=== PATIENT | female | born 1940 | race Two or more races ===

== ENCOUNTER 2019-01-12 13:01 | Emergency (ER) | payer MEDICARE, OTHER ==
[2019-01-12 13:09] VITALS: TEMP 97.8
--- NOTE | 2019-01-12 14:07 | ED ---
Weakness HPI - General Chief complaint: Weakness Stated complaint: weakness, unexplained bruising Time Seen by Provider: 01/12/19 13:33 Source: patient, RN notes reviewed, old records reviewed Mode of arrival: ambulatory Limitations: no limitations - History of Present Illness Initial comments: This is a 78-year-old female the ER for evaluation. Patient has multiple nonspecific complaints Bren[place] of things from nausea vomiting diarrhea occasional nonspecific abdominal pain decreased appetite and significant bruising of her left upper extremity. Patient is on Alquist. She also took Motrin for a few days for pain. Denies specific traumas. No prior history of similar bleeding issue. No chest pain patient denies any fevers MD Complaint: generalized weakness, lack of energy -: days(s) Location: LUE (Left upper extremity does have significant ecchymosis) Consistency: constant Improves with: none Worsens with: none Associated Symptoms: loss of appetite, nausea/vomiting - Related Data Home Medications Medication Instructions Recorded Confirmed Calcium Carbonate/Vitamin D3 1 tab PO DAILY 01/12/19 01/12/19 [Calcium 600-Vit D3 400 Tablet] Hydrocodone/Acetaminophen [Mcintosh 1 tab PO Q6HR PRN 01/12/19 01/12/19 7.5-325] Latanoprost/Pf [Latanoprost 0.005% 1 drop BOTH EYES HS 01/12/19 01/12/19 Eye Drop] Multivitamins, Thera [Multivitamin 1 tab PO DAILY 01/12/19 01/12/19 (formulary)] Oxybutynin Chloride [Ditropan] 5 mg PO BID 01/12/19 01/12/19 Ranitidine HCl [Zantac] 150 mg PO BID 01/12/19 01/12/19 Sertraline HCl [Zoloft] 200 mg PO DAILY 01/12/19 01/12/19 traZODone HCL [Desyrel] 50 mg PO HS 01/12/19 01/12/19 Allergies Allergy/AdvReac Type Severity Reaction Status Date / Time gabapentin Allergy Rash/Hives Verified 01/12/19 13:41 meperidine [From Demerol] Allergy Rash/Hives Verified 01/12/19 13:41 Penicillins Allergy Rash/Hives Verified 01/12/19 13:41 Sulfa (Sulfonamide Allergy Rash/Hives Verified 01/12/19 13:41 Antibiotics) Review of Systems ROS Statement: Those systems with pertinent positive or pertinent negative responses have been documented in the HPI. ROS Other: All systems not noted in ROS Statement are negative. Past Medical History Past Medical History: Chest Pain / Angina, Pulmonary Embolus (PE) Additional Past Medical History / Comment(s): Blood clots History of Any Multi-Drug Resistant Organisms: None Reported Past Surgical History: Hysterectomy, Orthopedic Surgery Past Psychological History: No Psychological Hx Reported Smoking Status: Never smoker Past Alcohol Use History: Occasional Past Drug Use History: None Reported General Exam - General Exam Comments Initial Comments: Patient does have significant ecchymosis and areas of swelling of her left upper extremity, no hematoma noted, good pulses Limitations: no limitations General appearance: alert, in no apparent distress Head exam: Present: atraumatic, normocephalic, normal inspection Eye exam: Present: normal appearance, PERRL, EOMI. Absent: scleral icterus, conjunctival injection, periorbital swelling ENT exam: Present: normal exam, mucous membranes moist Neck exam: Present: normal inspection. Absent: tenderness, meningismus, lymphadenopathy Respiratory exam: Present: normal lung sounds bilaterally. Absent: respiratory distress, wheezes, rales, rhonchi, stridor Cardiovascular Exam: Present: regular rate, normal rhythm, normal heart sounds. Absent: systolic murmur, diastolic murmur, rubs, gallop, clicks GI/Abdominal exam: Present: soft, normal bowel sounds. Absent: distended, tenderness, guarding, rebound, rigid Extremities exam: Present: normal inspection, full ROM, normal capillary refill. Absent: tenderness, pedal edema, joint swelling, calf tenderness Back exam: Present: normal inspection Neurological exam: Present: alert, oriented X3, CN II-XII intact Psychiatric exam: Present: normal affect, normal mood Skin exam: Present: warm, dry, intact, normal color. Absent: rash Course Vital Signs 01/12/19 01/12/19 13:05 17:55 Temperature 97.8 F Pulse Rate 66 60 Respiratory 20 18 Rate Blood Pressure 133/70 127/90 O2 Sat by Pulse 96 100 Oximetry EKG Findings - EKG Comments: EKG Findings:: EKG shows sinus rhythm rate of 63, DE 20, QRS 86, QTc 388 Medical Decision Making - Medical Decision Making 78-year-old female the ER for evaluation lab values including platelets are negative here in the ER, he will is normal, ultrasound left upper extremity is negative for acute disease or DVT. Patient can be discharged home - Lab Data Result diagrams: 01/12/19 15:20 01/12/19 15:20 Lab Results 01/12/19 01/12/19 01/12/19 Range/Units 15:20 15:20 15:20 WBC 3.9 (3.8-10.6) k/uL RBC 3.81 (3.80-5.40) m/uL Hgb 12.4 (11.4-16.0) gm/dL Hct 36.0 (34.0-46.0) % MCV 94.5 (80.0-100.0) fL MCH 32.7 (25.0-35.0) pg MCHC 34.6 (31.0-37.0) g/dL RDW 12.5 (11.5-15.5) % Plt Count 163 (150-450) k/uL Neutrophils % 58 % Lymphocytes % 20 % Monocytes % 11 % Eosinophils % 7 % Basophils % 0 % Neutrophils # 2.3 (1.3-7.7) k/uL Lymphocytes # 0.8 L (1.0-4.8) k/uL Monocytes # 0.4 (0-1.0) k/uL Eosinophils # 0.3 (0-0.7) k/uL Basophils # 0.0 (0-0.2) k/uL PT 9.8 (9.0-12.0) sec INR 0.9 (<1.2) APTT 24.5 (22.0-30.0) sec Sodium 133 L (137-145) mmol/L Potassium 4.5 (3.5-5.1) mmol/L Chloride 98 (98-107) mmol/L Carbon Dioxide 26 (22-30) mmol/L Anion Gap 9 mmol/L BUN 15 (7-17) mg/dL Creatinine 0.81 (0.52-1.04) mg/dL Est GFR (CKD-EPI)AfAm 80 (>60 ml/min/1.73 sqM) Est GFR (CKD-EPI)NonAf 69 (>60 ml/min/1.73 sqM) Glucose 68 L (74-99) mg/dL Calcium 9.6 (8.4-10.2) mg/dL Magnesium 1.7 (1.6-2.3) mg/dL Total Bilirubin 0.5 (0.2-1.3) mg/dL AST 27 (14-36) U/L ALT 17 (9-52) U/L Alkaline Phosphatase 93 (38-126) U/L Troponin I (0.000-0.034) ng/mL Total Protein 6.8 (6.3-8.2) g/dL Albumin 4.3 (3.5-5.0) g/dL Blood Type Blood Type Recheck Antibody Screen Spec Expiration Date 01/12/19 01/12/19 Range/Units 15:20 15:20 WBC (3.8-10.6) k/uL RBC (3.80-5.40) m/uL Hgb (11.4-16.0) gm/dL Hct (34.0-46.0) % MCV (80.0-100.0) fL MCH (25.0-35.0) pg MCHC (31.0-37.0) g/dL RDW (11.5-15.5) % Plt Count (150-450) k/uL Neutrophils % % Lymphocytes % % Monocytes % % Eosinophils % % Basophils % % Neutrophils # (1.3-7.7) k/uL Lymphocytes # (1.0-4.8) k/uL Monocytes # (0-1.0) k/uL Eosinophils # (0-0.7) k/uL Basophils # (0-0.2) k/uL PT (9.0-12.0) sec INR (<1.2) APTT (22.0-30.0) sec Sodium (137-145) mmol/L Potassium (3.5-5.1) mmol/L Chloride (98-107) mmol/L Carbon Dioxide (22-30) mmol/L Anion Gap mmol/L BUN (7-17) mg/dL Creatinine (0.52-1.04) mg/dL Est GFR (CKD-EPI)AfAm (>60 ml/min/1.73 sqM) Est GFR (CKD-EPI)NonAf (>60 ml/min/1.73 sqM) Glucose (74-99) mg/dL Calcium (8.4-10.2) mg/dL Magnesium (1.6-2.3) mg/dL Total Bilirubin (0.2-1.3) mg/dL AST (14-36) U/L ALT (9-52) U/L Alkaline Phosphatase (38-126) U/L Troponin I <0.012 (0.000-0.034) ng/mL Total Protein (6.3-8.2) g/dL Albumin (3.5-5.0) g/dL Blood Type O Negative Blood Type Recheck CABO Indicated Antibody Screen NEGATIVE Spec Expiration Date 01/15/2019 - 2320 - Radiology Data Radiology results: report reviewed (Ultrasound left lower extremity is negative for DVT), image reviewed Disposition Clinical Impression: Weakness, Ecchymosis Disposition: HOME SELF-CARE Condition: Good Instructions (If sedation given, give patient instructions): Ecchymosis (ED) Is patient prescribed a controlled substance at d/c from ED?: No Referrals: Oliverio Eng MD [Primary Care Provider] - 1-2 days
[2019-01-12] MEDS ORDERED: SODIUM CHLORIDE 0.9% 1,000 ML IV STA (14:49)
[2019-01-12 15:42] LABS: Basophils % (A) 0 %; Eosinophils # (A) 0.3 k/uL (0-0.7); Eosinophils % (A) 7 %; HGB 12.4 gm/dL (11.4-16.0); Lymphocytes # (A) 0.8 k/uL (1.0-4.8); Lymphocytes % (A) 20 %; MCH 32.7 pg (25.0-35.0); MCHC 34.6 g/dL (31.0-37.0); MCV 94.5 fL (80.0-100.0); Mean Platelet Volume 7.4; Monocytes # (A) 0.4 k/uL (0-1.0); Monocytes % (A) 11 %; Neutrophils # (A) 2.3 k/uL (1.3-7.7); Neutrophils % (A) 58 %; Platelet Count 163 k/uL (150-450); RBC 3.81 m/uL (3.80-5.40); RDW 12.5 % (11.5-15.5); WBC 3.9 k/uL (3.8-10.6)
[2019-01-12 15:51] LABS: INR 0.9 (<1.2); Partial Thromboplastin Time 24.5 sec (22.0-30.0); Prothrombin Time 9.8 sec (9.0-12.0)
[2019-01-12 15:57] LABS: Albumin 4.3 g/dL (3.5-5.0); Calcium 9.6 mg/dL (8.4-10.2); Magnesium 1.7 mg/dL (1.6-2.3); Potassium 4.5 mmol/L (3.5-5.1); Total Bilirubin 0.5 mg/dL (0.2-1.3); Total Protein 6.8 g/dL (6.3-8.2)
--- NOTE | 2019-01-12 16:24 | US ---
EXAMINATION TYPE: US venous doppler duplex UE LT DATE OF EXAM: 01/12/2019 COMPARISON: NONE CLINICAL HISTORY: Pain. Pain left arm x 6 days. Bruising left arm. Hx PE. Pt on eliquis. SIDE PERFORMED: Left *limited due to patient's difficulty positioning arm. Left Arm: No evidence of DVT in the left upper extremity. IMPRESSION: 1. No diagnostic evidence of DVT as visualized.
[2019-01-12 17:56] VITALS: BP 127/90; PULSE 60; RESP 18
== END 2019-01-12 17:56 | disposition home or self-care (01) ==
LOC: EC 13:01
DX: R53.1 Weakness (principal); S40.022A Contusion of left upper arm, initial encounter; R11.2 Nausea with vomiting, unspecified; R19.7 Diarrhea, unspecified; R63.0 Anorexia; Z79.899 Other long term (current) drug therapy; Z88.8 Allergy status to other drugs, medicaments and biological substances; Z88.5 Allergy status to narcotic agent; Z88.0 Allergy status to penicillin; Z88.2 Allergy status to sulfonamides
CPT/HCPCS: 36415; 80053; 83735; 84484; 85025; 85610; 85730; 86850; 86900; 86901; 93005; 96360; 96361; 99285

== ENCOUNTER 2021-04-27 16:17 | Inpatient (IN) | payer MEDICARE ==
[2021-04-27 18:26] LABS: Basophils % (A) 0 %; Eosinophils # (A) 0.2 k/uL (0-0.7); Eosinophils % (A) 4 %; HCT 36.2 % (34.0-46.0); HGB 12.7 gm/dL (11.4-16.0); Lymphocytes # (A) 0.9 k/uL (1.0-4.8); Lymphocytes % (A) 24 %; MCH 34.5 pg (25.0-35.0); MCV 98.6 fL (80.0-100.0); Monocytes # (A) 0.2 k/uL (0-1.0); Monocytes % (A) 6 %; Neutrophils # (A) 2.3 k/uL (1.3-7.7); Neutrophils % (A) 64 %; Platelet Count 160 k/uL (150-450); RBC 3.67 m/uL (3.80-5.40); RDW 12.6 % (11.5-15.5); WBC 3.7 k/uL (3.8-10.6)
[2021-04-27 18:39] LABS: INR 0.9 (<1.2); Partial Thromboplastin Time 24.6 sec (22.0-30.0); Prothrombin Time 10.2 sec (9.0-12.0)
[2021-04-27 18:39] LABS: Albumin 4.2 g/dL (3.5-5.0); Calcium 9.1 mg/dL (8.4-10.2); Potassium 4.6 mmol/L (3.5-5.1); Total Bilirubin 0.2 mg/dL (0.2-1.3); Total Protein 6.5 g/dL (6.3-8.2)
[2021-04-27] MEDS ORDERED: diphenhydrAMINE 50 MG/ML 1 ML VIAL IVP STA (19:40)
[2021-04-27] MEDS ORDERED: METOCLOPRAMIDE 5 MG/ML 2 ML VIAL IVP STA (19:40)
[2021-04-27] MEDS ORDERED: SODIUM CHLORIDE 0.9% 500 ML 500 ML IV ONE (19:40)
--- NOTE | 2021-04-27 20:14 | ED ---
General Adult HPI - General Source: patient Mode of arrival: wheelchair Limitations: no limitations <Viviane Phillip - Last Filed: 04/27/21 22:16> <Denae Gilbert - Last Filed: 04/28/21 13:32> - General Chief complaint: Dizziness Stated complaint: Headache,Dizziness Time Seen by Provider: 04/27/21 19:05 - History of Present Illness Initial comments: 81 year-old female patient with past history of migraines and pulmonary embolism presents to the emergency department for evaluation of headache for the last 1.5 months. States that over the last couple of weeks she has been experiencing dizziness and not feeling well. States that the dizziness comes and goes but does not seem to be related to any position change or activity. Denies any blurred or double vision. Daughter states she walked to the mailbox yesterday and upon return her headache was much worse and she was quite dizzy. Patient states that she has been "queasy" with this. Denies any fever or chills. Denies numbness, tingling, or weakness to the extremities. Denies starting any new medications. Denies any fall or head injury. States she has been taking her prescribed sumatriptan, zofran, and OTC tylenol without relief. Patient denies any recent rash, fever, chills, cough, shortness of breath, chest pain, abdominal pain, diarrhea, constipation, back pain, hematuria, dysuria, urinary urgency, urinary frequency, or any other complaints. (Viviane Phillip) - Related Data Home Medications Medication Instructions Recorded Confirmed Oxybutynin Chloride [Ditropan] 5 mg PO BID 01/12/19 04/27/21 Sertraline HCl [Zoloft] 200 mg PO HS 01/12/19 04/27/21 traZODone HCL [Desyrel] 50 mg PO HS 01/12/19 04/27/21 Apixaban [Eliquis] 5 mg PO BID 04/27/21 04/27/21 Propranolol [Inderal] 40 mg PO BID 04/27/21 04/27/21 SUMAtriptan succinate [Imitrex] 50 mg PO DAILY PRN 04/27/21 04/27/21 Ondansetron [Zofran ODT] 4 mg PO Q8H PRN 04/28/21 04/28/21 Allergies Allergy/AdvReac Type Severity Reaction Status Date / Time gabapentin Allergy Rash/Hives Verified 04/27/21 21:52 meperidine [From Demerol] Allergy Rash/Hives Verified 04/27/21 21:52 Penicillins Allergy Rash/Hives Verified 04/27/21 21:52 Sulfa (Sulfonamide Allergy Rash/Hives Verified 04/27/21 21:52 Antibiotics) Review of Systems ROS Other: All systems not noted in ROS Statement are negative. <Viviane Phillip - Last Filed: 04/27/21 22:16> ROS Other: All systems not noted in ROS Statement are negative. <Denae Gilbert - Last Filed: 04/28/21 13:32> ROS Statement: Those systems with pertinent positive or pertinent negative responses have been documented in the HPI. Past Medical History Past Medical History: Chest Pain / Angina, Pulmonary Embolus (PE) Additional Past Medical History / Comment(s): Blood clots History of Any Multi-Drug Resistant Organisms: None Reported Past Surgical History: Hysterectomy, Orthopedic Surgery Past Psychological History: No Psychological Hx Reported Smoking Status: Former smoker Past Alcohol Use History: Occasional Past Drug Use History: None Reported <Viviane Phillip - Last Filed: 04/27/21 22:16> General Exam Limitations: no limitations General appearance: alert, in no apparent distress, other (This is a well- developed, well-nourished elderly female patient in no acute distress. Vital signs upon presentation are temperature 97.9F, pulse 60, respirations 16, blood pressure 152/69, pulse ox 99% on room air.) Eye exam: Present: normal appearance, PERRL, EOMI. Absent: scleral icterus, conjunctival injection, periorbital swelling ENT exam: Present: normal exam, normal oropharynx, mucous membranes moist Respiratory exam: Present: normal lung sounds bilaterally. Absent: respiratory distress, wheezes, rales, rhonchi, stridor Cardiovascular Exam: Present: regular rate, normal rhythm, normal heart sounds. Absent: systolic murmur, diastolic murmur, rubs, gallop, clicks GI/Abdominal exam: Present: soft, normal bowel sounds. Absent: distended, tenderness, guarding, rebound, rigid Neurological exam: Present: alert, oriented X3, CN II-XII intact Expanded Speech: Present: fluid speech Cranial nerves: EOM's Intact: Normal, Tongue Deviation: Normal, Nystagmus: Normal Motor strength exam: RUE: 5, LUE: 5, RLE: 5, LLE: 5 Psychiatric exam: Present: normal affect, normal mood Skin exam: Present: warm, dry, intact, normal color. Absent: rash <Viviane Phillip - Last Filed: 04/27/21 22:16> Course Vital Signs 04/27/21 04/27/21 04/27/21 17:47 18:45 22:33 Temperature 97.9 F Pulse Rate 60 56 L Respiratory 16 15 Rate Blood Pressure 152/69 139/81 157/73 O2 Sat by Pulse 99 100 Oximetry EKG Findings - EKG Comments: EKG Findings:: EKG obtained at 1802 shows sinus rhythm with a first-degree AV block. Ventricular rate is 61, AL interval 234, QRS duration 88, QT 402, QTc 404. No evidence of ST elevation or depression. <Viviane Phillip - Last Filed: 04/27/21 22:16> Medical Decision Making - Lab Data Result diagrams: 04/27/21 18:13 04/27/21 18:13 - Radiology Data Radiology results: report reviewed, image reviewed <Viviane Phillip - Last Filed: 04/27/21 22:16> - Lab Data Result diagrams: 04/27/21 18:13 04/28/21 07:17 <Denae Gilbert - Last Filed: 04/28/21 13:32> - Medical Decision Making 81-year-old female patient presented to the emergency department today for evaluation of headache and dizziness. Physical examination was unremarkable. She is neurologically intact with no focal deficits. Labs reviewed and did reveal white blood cell count at 3.7, sodium 129. Urinalysis is negative for infection. CT brain is negative. Given intractable nature of patient's symptoms admitted to the hospital for further evaluation by neurology. We will replace sodium with IV infusion. Case discussed with my attending Dr. Gilbert. (Viviane Phillip) I was available for consultation in the emergency department. The history and physical exam were done by the midlevel provider. I was consulted for this patients care. I reviewed the case with the midlevel provider and based on their presentation of the patient, I agree with the assessment, medical decision making and plan of care as documented. Chart was dictated using [employer] dictation software. Attempts were made to correct any dictation errors however some typographical errors may persist. Patient was seen during a national state of emergency due to the Covid-19 pandemic. (Denae Gilbert) - Lab Data Lab Results 04/27/21 04/27/21 04/27/21 Range/Units 18:13 18:13 18:13 WBC 3.7 L (3.8-10.6) k/uL RBC 3.67 L (3.80-5.40) m/uL Hgb 12.7 (11.4-16.0) gm/dL Hct 36.2 (34.0-46.0) % MCV 98.6 (80.0-100.0) fL MCH 34.5 (25.0-35.0) pg MCHC 35.0 (31.0-37.0) g/dL RDW 12.6 (11.5-15.5) % Plt Count 160 (150-450) k/uL MPV 7.0 Neutrophils % 64 % Lymphocytes % 24 % Monocytes % 6 % Eosinophils % 4 % Basophils % 0 % Neutrophils # 2.3 (1.3-7.7) k/uL Lymphocytes # 0.9 L (1.0-4.8) k/uL Monocytes # 0.2 (0-1.0) k/uL Eosinophils # 0.2 (0-0.7) k/uL Basophils # 0.0 (0-0.2) k/uL PT (9.0-12.0) sec INR (<1.2) APTT (22.0-30.0) sec Sodium 129 L (137-145) mmol/L Potassium 4.6 (3.5-5.1) mmol/L Chloride 93 L (98-107) mmol/L Carbon Dioxide 28 (22-30) mmol/L Anion Gap 8 mmol/L BUN 13 (7-17) mg/dL Creatinine 0.80 (0.52-1.04) mg/dL Est GFR (CKD-EPI)AfAm 79 (>60 ml/min/1.73 sqM) Est GFR (CKD-EPI)NonAf 69 (>60 ml/min/1.73 sqM) Glucose 110 H (74-99) mg/dL Calcium 9.1 (8.4-10.2) mg/dL Total Bilirubin 0.2 (0.2-1.3) mg/dL AST 34 (14-36) U/L ALT 17 (4-34) U/L Alkaline Phosphatase 96 (38-126) U/L Troponin I <0.012 (0.000-0.034) ng/mL Total Protein 6.5 (6.3-8.2) g/dL Albumin 4.2 (3.5-5.0) g/dL Urine Color Urine Appearance (Clear) Urine pH (5.0-8.0) Ur Specific [place] (1.001-1.035) Urine Protein (Negative) Urine Glucose (UA) (Negative) Urine Ketones (Negative) Urine Blood (Negative) Urine Nitrite (Negative) Urine Bilirubin (Negative) Urine Urobilinogen (<2.0) mg/dL Ur Leukocyte Esterase (Negative) 04/27/21 04/27/21 Range/Units 18:19 20:15 WBC (3.8-10.6) k/uL RBC (3.80-5.40) m/uL Hgb (11.4-16.0) gm/dL Hct (34.0-46.0) % MCV (80.0-100.0) fL MCH (25.0-35.0) pg MCHC (31.0-37.0) g/dL RDW (11.5-15.5) % Plt Count (150-450) k/uL MPV Neutrophils % % Lymphocytes % % Monocytes % % Eosinophils % % Basophils % % Neutrophils # (1.3-7.7) k/uL Lymphocytes # (1.0-4.8) k/uL Monocytes # (0-1.0) k/uL Eosinophils # (0-0.7) k/uL Basophils # (0-0.2) k/uL PT 10.2 (9.0-12.0) sec INR 0.9 (<1.2) APTT 24.6 (22.0-30.0) sec Sodium (137-145) mmol/L Potassium (3.5-5.1) mmol/L Chloride (98-107) mmol/L Carbon Dioxide (22-30) mmol/L Anion Gap mmol/L BUN (7-17) mg/dL Creatinine (0.52-1.04) mg/dL Est GFR (CKD-EPI)AfAm (>60 ml/min/1.73 sqM) Est GFR (CKD-EPI)NonAf (>60 ml/min/1.73 sqM) Glucose (74-99) mg/dL Calcium (8.4-10.2) mg/dL Total Bilirubin (0.2-1.3) mg/dL AST (14-36) U/L ALT (4-34) U/L Alkaline Phosphatase (38-126) U/L Troponin I (0.000-0.034) ng/mL Total Protein (6.3-8.2) g/dL Albumin (3.5-5.0) g/dL Urine Color Colorless Urine Appearance Clear (Clear) Urine pH 7.5 (5.0-8.0) Ur Specific [place] 1.004 (1.001-1.035) Urine Protein Negative (Negative) Urine Glucose (UA) Negative (Negative) Urine Ketones Negative (Negative) Urine Blood Negative (Negative) Urine Nitrite Negative (Negative) Urine Bilirubin Negative (Negative) Urine Urobilinogen <2.0 (<2.0) mg/dL Ur Leukocyte Esterase Negative (Negative) - Radiology Data CT brain without contrast was obtained. Report was reviewed in its entirety. Impression by Dr. Tsang shows stable atrophy and chronic small vessel ischemia. No acute intracranial abnormality. (Viviane Phillip) Disposition Decision to Admit Reason: Admit from EC Decision Date: 04/27/21 Decision Time: 21:40 <Viviane Phillip - Last Filed: 04/27/21 22:16> <Denae Gilbert - Last Filed: 04/28/21 13:32> Clinical Impression: Dizziness, Intractable headache Disposition: ADMITTED IP TO THIS [facility] Condition: Serious
--- NOTE | 2021-04-27 20:17 | CT ---
EXAMINATION TYPE: CT brain wo con DATE OF EXAM: 04/27/2021 COMPARISON: HISTORY: Headache x 1.[address] DLP: 1141.4 mGycm Automated exposure control for dose reduction was used. There is cerebral cortical atrophy. There is no mass effect nor midline shift. There is no sign of in tracranial hemorrhage. There is some mild white matter hypodensity in the posterior parietal lobes bi laterally. Calvarium is intact skull base is intact. IMPRESSION: Cerebral atrophy and chronic small vessel ischemia. No acute intracranial abnormality.
[2021-04-27 20:55] LABS: Appearance,Urine Clear (Clear); Bilirubin,Urine Negative (Negative); Blood,Urine Negative (Negative); Color,Urine Colorless; Glucose,Urine (UA) Negative (Negative); Ketones,Urine Negative (Negative); Leukocyte Esterase,Urine Negative (Negative); Nitrite,Urine Negative (Negative); PH, Urine 7.5 (5.0-8.0); Protein,Urine Negative (Negative); Specific Gravity,Urine 1.004 (1.001-1.035); Urobilinogen,Urine <2.0 mg/dL (<2.0)
[2021-04-27] MEDS ORDERED: ONDANSETRON 4 MG/2 ML VIAL IVP PRN (21:37)
[2021-04-27] MEDS ORDERED: NALOXONE 0.4 MG/ML 1 ML VIAL IV PRN (21:37)
[2021-04-27] MEDS ORDERED: DEXAMETHASONE SOD PHOSPHATE 10 MG/ML 1 ML VIAL IV STA (21:39)
[2021-04-27] MEDS ORDERED: KETOROLAC 15 MG/ML 1 ML VIAL IVP STA (21:39)
[2021-04-27] MEDS ORDERED: SODIUM CHLORIDE 0.9% 1,000 ML IV SCH (21:45)
[2021-04-27 23:15] VITALS: RESP 20
[2021-04-28] MEDS ORDERED: traZODone HCL 50 MG TAB PO SCH (01:32)
[2021-04-28] MEDS ORDERED: SERTRALINE 100 MG TAB PO SCH (01:32)
[2021-04-28] MEDS ORDERED: cloNIDine HCL 0.2 MG TAB PO PRN (01:52)
[2021-04-28] MEDS: APIXABAN 5 MG TAB PO SCH ×2 (01:54→11:10)
[2021-04-28] MEDS: PROPRANOLOL 40 MG TAB PO SCH ×2 (01:57→11:10)
[2021-04-28] MEDS: OXYBUTYNIN CHLORIDE 5 MG TAB PO SCH ×2 (01:57→11:10)
--- NOTE | 2021-04-28 02:12 | P.HPIM ---
History of Present Illness H&P Date: 04/27/21 Chief Complaint: headache 81 year old female with severe diffuse arthritis patient comes in due to worsening headaches, over past couple days. she described history of migraine headaches since age of 11. however, this new attack that strted about 1.5 months ago, pain has been intractable not responding to tylenol and mainly frontal pressure like associated with episodes of epistaxis and elevated blood pressure, pain is 8/10 in severity. and over past two day s has been associated with dizziness and feeling unsteady on her legs. denies any falling or head injury , denies any focal neuro deficits , denies any changes in hearing or vision. denies tinnitus , she does describe some nausea, but no vomiting,. patient lives alone. she has scheduled an appointment with neurology , which is not until mid april. she denies any URI symptoms, runny nose, fever, or chills, no recent travel or hospitalization. she is vaccinated for COIVD 19 in the ED, CT of the brain showed no acute pathology, but showed chronic small vessel ischemia. blood work showed hyponatremia, UA negative. WBC low 3.7, patient admitted for intractable headache for neuro eval Review of Systems Pertinent positives as noted in HPI. All other systems were reviewed and are negative Past Medical History Past Medical History: Chest Pain / Angina, Pulmonary Embolus (PE) Additional Past Medical History / Comment(s): Blood clots, migraine headache History of Any Multi-Drug Resistant Organisms: None Reported Past Surgical History: Hysterectomy, Orthopedic Surgery Additional Past Surgical History / Comment(s): left knee replacement, right hip, right shoulder replacement Past Anesthesia/Blood Transfusion Reactions: No Reported Reaction Past Psychological History: No Psychological Hx Reported Smoking Status: Former smoker Past Alcohol Use History: Occasional Past Drug Use History: None Reported - Past Family History family Family Medical History: No Reported History Medications and Allergies Home Medications Medication Instructions Recorded Confirmed Type Oxybutynin Chloride [Ditropan] 5 mg PO BID 01/12/19 04/27/21 History Sertraline HCl [Zoloft] 200 mg PO HS 01/12/19 04/27/21 History traZODone HCL [Desyrel] 50 mg PO HS 01/12/19 04/27/21 History Apixaban [Eliquis] 5 mg PO BID 04/27/21 04/27/21 History Ondansetron HCl [Zofran] 4 mg PO Q8H PRN 04/27/21 04/27/21 History Propranolol [Inderal] 40 mg PO BID 04/27/21 04/27/21 History SUMAtriptan succinate [Imitrex] 50 mg PO DAILY PRN 04/27/21 04/27/21 History Allergies Allergy/AdvReac Type Severity Reaction Status Date / Time gabapentin Allergy Rash/Hives Verified 04/27/21 21:52 meperidine [From Demerol] Allergy Rash/Hives Verified 04/27/21 21:52 Penicillins Allergy Rash/Hives Verified 04/27/21 21:52 Sulfa (Sulfonamide Allergy Rash/Hives Verified 04/27/21 21:52 Antibiotics) Physical Exam Vitals: Vital Signs Temp Pulse Pulse Resp BP BP Pulse Ox 04/27/21 23:00 97.8 F 60 20 175/79 98 04/27/21 22:33 56 L 15 157/73 100 04/27/21 18:45 139/81 04/27/21 17:47 97.9 F 60 16 152/69 99 Intake and Output 04/27/21 04/27/21 04/28/21 14:59 22:59 06:59 Other: Weight 74.843 kg Constitutional: No acute distress, conversant, pleasant Eyes: Anicteric sclerae, moist conjunctiva, Pupils equal round reactive to light ENMT: NC/AT Oropharynx clear, no erythema, or exudates Neck: Supple, FROM, no masses, or JVD No carotid bruits No thyromegaly Lungs: Clear to auscultation Clear to percussion Normal respiratory effort, no accessory muscle use Cardiovascular: Heart regular in rate and rhythm, systolic murmurs, no gallops, or rubs trace peripheral edema Abdominal: Soft Nontender, no guarding, rebound or rigidity Abdomen moving with respiration Normoactive bowel sounds No hepatomegaly, No splenomegaly No palpable mass No abdominal wall hernia noted Skin: Normal temperature, tone, texture, turgor No induration No subcutaneous nodules No rash, lesions No ulcers Extremities: No digital cyanosis No clubbing Pedal pulses intact and symmetrical Radial pulses intact and symmetrical No calf tenderness Psychiatric: Alert and oriented to person, place and time Appropriate affect fair judgement Neuro Muscles Strength 5/5 in bilateral lower extremities, limited exam over bilateral upper extremities, due to severe arthritis and rotator cuff injuries Sensation to light touch grossly present throughout Cranial nerves II-XII grossly intact No focal sensory deficits Lymphatics: no palpable cervical or supraclavicular , or inguinal lymph nodes Results CBC & Chem 7: 04/27/21 18:13 04/27/21 18:13 Labs: Abnormal Lab Results - Last 24 Hours (Table) 04/27/21 04/27/21 Range/Units 18:13 18:13 WBC 3.7 L (3.8-10.6) k/uL RBC 3.67 L (3.80-5.40) m/uL Lymphocytes # 0.9 L (1.0-4.8) k/uL Sodium 129 L (137-145) mmol/L Chloride 93 L (98-107) mmol/L Glucose 110 H (74-99) mg/dL Thrombosis Risk Factor Assmnt - Choose All That Apply Each Risk Factor Represents 3 Points: Age 75 years or older Thrombosis Risk Factor Assessment Total Risk Factor Score: 3 Thrombosis Risk Factor Assessment Level: Moderate Risk Assessment and Plan Assessment: intractable headache history of migraine headaches pain control monitor vital signs neuro checks CT brain no acute pathology neuro consult fall precautions PT eval hyponatremia IVF hydration with normal saline recheck Na level in AM for further recommendations severe chronic arthritis pain control hypertension , uncontrolle d resume propranolol PRN clonidine history of blood clots resume eliquis full code DVT PPX on eliquis anticipated length of stay < 2 midnights anticipated discharge home
[2021-04-28 04:47] VITALS: BP 159/76; PULSE 67; TEMP 97.4
[2021-04-28] MEDS ORDERED: IBUPROFEN 400 MG TAB PO PRN (09:13)
[2021-04-28] MEDS ORDERED: ACETAMINOPHEN TAB 325 MG TAB PO PRN (09:13)
--- NOTE | 2021-04-28 09:21 | P.CNNES ---
History of Present Illness Consult date: 04/28/21 Requesting physician: Viviane Phillip Reason for Consult: intractable headaches History of Present Illness: This is an 81-year-old woman with medical history of migraine (since 11 years- old), angina, pulmonary embolism who presented emergency department on 04/27/2021 for headache. He stated that her headache began about 2 to 3 weeks ago. She said it started with her typical migraine in which she had blurred vision of both eyes then the she had the zigzag that she was seeing on her eyes then she started having headache over the right frontal region it was a throbbing, it was 8 out of 10, she had photophobia, phonophobia, she felt nauseous but denied any vertigo or vomiting. She also felt dizzy at. Patient took her Imitrex and and her visual symptoms cleared but dictating to have headaches the next day so she took another dose of Imitrex the next day. She said she continued to have dizziness and continued headache and her headache was not only in the right frontal region was in the entire of frontal region. She took a total of the 3 Imitrex and the span of 2-3 weeks. She said that is unusual for her migraine to go beyond 40 hours. She denied of any fever, any head trauma, any rash, any new focal weakness, any new numbness or tingling, any difficulty getting her words out or swallowing. Patient stated that she has migraine since the age of 11 and she's been taking Imitrex when necessary as well as she is been on propanolol 40 mg 1 tablet twice a day and she stated the that's being used for her blood pressure by notified her that also used the for headache prophylaxis as well. He said that she was never evaluated by neurologist in the past. She said that her migraines are being managed by her primary. She denies of any history of brain mass that she was notified about. While in the ED she was given the migraine cocktail and currently she feels her headache is 2/10 and she denies of any visual disturbance or any new neurological deficit. Patient home medications consist of Imitrex 50 mg daily when necessary, Propanolol 40 mg 1 tablet twice a day, oxybutynin, Zofran, trazodone, Eliquis 5 mg tablet twice a day, Zoloft. Patient stated that she has bilateral shoulder joint issues and she does not have a socket over the right shoulder and had the multiple surgeries over the right shoulder and as a result has a residual weakness over the right upper extremity in which she can't lift her upper extremities above gravity but is able to bend her elbow. She also has left shoulder joint issues as well and has a somewhat weakness as a result. She has left knee replacement and right hip replacement. Patient did acknowledge she has history of depression in the past. Some other workup in the hospital consisted of: Initial vital signs is a initial blood pressure is 152/69, heart rate of 60, respiratory of 16, temperature of 97.9 Fahrenheit oral and pulse ox of 99% room air. During this hospital stay the patient's blood pressure has been in the range predominantly and systolic in the 150s to 170s diastolic in the 70s. CT of the head is reported as cerebral atrophy and chronic small vessel ischemia. No acute to cranial abnormality. CBC with differential is a white blood cells 3.7 thousand which is slightly low red blood cells 3.67 which is also slightly low otherwise it's unremarkable. Initial sodium is 129 which is mild to moderately decreased, glucose 110 was just slightly elevated but is unremarkable. The rest of the chemistry panel is unremarkable. Calcium 9.1, AST of 34, ALT of 17, creatinine is 0.80 is within normal limits Coagulation study: PT of 10.2, INR 0.9 and PTT of 24.6. Review of Systems Review of system: The 12 point system was reviewed and apparent positive and negative per HPI. Past Medical History Past Medical History: Chest Pain / Angina, Pulmonary Embolus (PE) Additional Past Medical History / Comment(s): Blood clots, migraine headache History of Any Multi-Drug Resistant Organisms: None Reported Past Surgical History: Hysterectomy, Orthopedic Surgery Additional Past Surgical History / Comment(s): left knee replacement, right hip, right shoulder replacement Past Anesthesia/Blood Transfusion Reactions: No Reported Reaction Past Psychological History: No Psychological Hx Reported Smoking Status: Former smoker Past Alcohol Use History: Occasional Past Drug Use History: None Reported - Past Family History family Family Medical History: No Reported History Medications and Allergies Home Medications Medication Instructions Recorded Confirmed Type Oxybutynin Chloride [Ditropan] 5 mg PO BID 01/12/19 04/27/21 History Sertraline HCl [Zoloft] 200 mg PO HS 01/12/19 04/27/21 History traZODone HCL [Desyrel] 50 mg PO HS 01/12/19 04/27/21 History Apixaban [Eliquis] 5 mg PO BID 04/27/21 04/27/21 History Ondansetron HCl [Zofran] 4 mg PO Q8H PRN 04/27/21 04/27/21 History Propranolol [Inderal] 40 mg PO BID 04/27/21 04/27/21 History SUMAtriptan succinate [Imitrex] 50 mg PO DAILY PRN 04/27/21 04/27/21 History Allergies Allergy/AdvReac Type Severity Reaction Status Date / Time gabapentin Allergy Rash/Hives Verified 04/27/21 21:52 meperidine [From Demerol] Allergy Rash/Hives Verified 04/27/21 21:52 Penicillins Allergy Rash/Hives Verified 04/27/21 21:52 Sulfa (Sulfonamide Allergy Rash/Hives Verified 04/27/21 21:52 Antibiotics) Physical Examination - Vital Signs Vital Signs: Vital Signs Temp Pulse Pulse Resp BP BP Pulse Ox 04/28/21 04:40 97.4 F L 67 20 159/76 94 L 04/27/21 23:00 97.8 F 60 20 175/79 98 04/27/21 22:33 56 L 15 157/73 100 04/27/21 18:45 139/81 04/27/21 17:47 97.9 F 60 16 152/69 99 Intake and Output 04/27/21 04/28/21 04/28/21 22:59 06:59 14:59 Intake Total 100 Balance 100 Intake: Oral 100 Other: # Voids 3 Weight 74.843 kg GENERAL: The patient is lying in bed and is not in acute distress. CHEST: The heart rate is regular rate rhythm. No murmurs to auscultation. LUNG: Clear to auscultation bilaterally no wheezing noted throughout. Not labored breathing. ABDOMEN/GI: Bowel sounds present in all 4 quadrants. No tenderness to palpation throughout. NEUROLOGICAL: Higher mental function: The patient is awake, alert, oriented to self, place and time. Patient is following commands. No aphasia and no neglect. Cranial nerves: The pupils are round, equal and reactive to light and accommodation. Visual metcalf are full to confrontation throughout. Extraocular movement is intact no nystagmus is noted. Facial sensation is normal to touch throughout. The facial strength is normal throughout. Hearing is moderately decreased bilaterally to hand rub. Tongue is midline and moved [id number] without any difficulty. No dysarthria is noted. Motor: Gait is deferred. The strength is able to bend her elbow and has at least 4+ over the left upper extremity, bilateral hand environmental protection officer are 4+ to 5- (her upper extremity deficits are old). Bilateral lower extremities are 5- bilaterally. Normal tone and bulk. Cerebellum: Normal finger to nose over the left while the right could not perform because of her ol deficits. Sensation: Sensation is normal to touch throughout. Reflexes (right/left): Right bracioradialis is 1-2+. Otherwise rest of right upper is 1+. Left is 2+. Lowers right patellar 2+, while left is 1+ (left knee replacement). Bilateral ankles are 1+ bilaterally. Plantars are mute bilaterally. 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 * I ordered MRI of the brain with and without and MRA of the head. Patient sta marisa if she cannot get it today she does not want to stay till Friday and rather will get it as outpatient instead. * In addition to her home does of Propanolol 40mg bid (which is used as migraine prophylaxis) I started the patient on Amitriptyline 5mg qhs (which is used for migraine prophylaxis and used for depression). Consider increasing amitriptyline to 10mg if patient continues to have migraines and has no side- effects.She is on Imitrex PRN for abortive (avoid >6 pills in a month). Recommend stopping Zoloft since currently on amitriptyline but will defer it to the primary team. * Every 4 hours neuro checks * We'll defer the rest of the medical measure the primary team. * Upon discharge the patient needs to follow-up with a neurologist as an outpatient within 1-2 weeks for further management of her headaches. The plan is discussed with the patient's nurse. Thank you for the consultation. Lorne Haney M.D. Neuro-hospitalist Time with Patient: Greater than 30
[2021-04-28 12:02] LABS: African American GFR (CKD) 68.5 (60.0-200.0); Anion Gap 8.1 mmol/L (4.00-12.00); BUN/Creat Ratio 16.67 Ratio (12.00-20.00); Calcium 9.5 mg/dL (8.7-10.3); Carbon Dioxide 28.9 mmol/L (21.6-31.8); Non-African American GFR(CKD) 59.1 (60.0-200.0); Potassium 4.7 mmol/L (3.5-5.5)
--- NOTE | 2021-04-28 16:08 | MR ---
EXAMINATION TYPE: MR brain wo/w con DATE OF EXAM: 04/28/2021 COMPARISON: None HISTORY: headache, R/O Anuerysm CONTRAST: Standard multiplanar, multisequence MRI departmental protocol utilizing 7.5 mL intravenous Gadavist g adolinium contrast. There is cerebral cortical atrophy. There is no mass effect nor midline shift. There is no sign of in tracranial hemorrhage. There is some enlargement of the ventricles. There is on the T2 and FLAIR images increased signal in the periventricular white matter which is coalescent around the frontal horns and the occipital horns of the lateral ventricles. This measures up to 12 mm in thickness. Brainstem is intact. Cerebellum is intact. Contrast images show no pathologic enhancement. There is n ormal enhancement of the venous sinuses. Corpus callosum is intact. Sella turcica appears normal. There is no evidence of orbital mass. 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 Cerebral atrophy.
[2021-04-28] MEDS ORDERED: polyethylene glycoL 3350 17 GM POWD.PACK PO STA (16:19)
[2021-04-28] MEDS ORDERED: diphenhydrAMINE 50 MG/ML 1 ML VIAL IVP STA (16:38)
[2021-04-28] MEDS ORDERED: KETOROLAC 15 MG/ML 1 ML VIAL IVP STA (16:38)
[2021-04-28] MEDS ORDERED: DEXAMETHASONE SOD PHOSPHATE 10 MG/ML 1 ML VIAL IV STA (16:38)
[2021-04-28] MEDS ORDERED: SODIUM CHLORIDE 0.9% 500 ML 250 ML IV ONE (16:39)
--- NOTE | 2021-04-28 17:07 | MR ---
EXAMINATION TYPE: MR angio head wo con DATE OF EXAM: 04/28/2021 COMPARISON: None HISTORY: headache, R/O Anuerysm MR angiographic images were obtained of the intracerebral arterial circulation. There is arterial flow in the vertebrobasilar artery system. There is arterial flow in the anterior m iddle and posterior cerebral arteries. I see no evidence of intracranial aneurysm or neovascularity. There is no mass effect. No significant flow seen in posterior communicating arteries. IMPRESSION: Negative MR angiogram of the brain. No aneurysm. No evidence of hemodynamic stenosis.
--- NOTE | 2021-04-28 19:45 | P.DS ---
Providers Date of admission: 04/27/21 21:15 Expected date of discharge: 04/28/21 Attending physician: Almas Hamilton MD Consults: 04/27/21 21:38 Consult Physician Routine Consulting Provider: Lorne Haney Consult Reason/Comments: Intractable headache Do you want consulting provider notified?: Yes Primary care physician: Caleb [facility] Course: Discharge Diagnosis: Intractable migraine headache failed outpatient treatment Hyponatremia History of migraine headache Angina History of pulmonary embolism Hospital Course: Patient is an 81-year-old female with a history of arthritis, migraine headache, prior pulmonary embolism who presented for migraine headache duration 2-3 weeks. In the ER she underwent an extensive evaluation. Despite aggressive treatment with Decadron, Benadryl, Reglan, and Toradol she continued to have a headache and was admitted for observation. She was seen by neurology. She underwent MRI of the brain which showed small vessel ischemic changes, MRA of the head which was negative. Her hyponatremia improved. She has not been eating or drinking well and extensive discussion about the need to stay hydrated with headaches. She was started on amitriptyline by neurology. Her headache improved and she was determined stable for discharge home. Follow-up: Outpatient neurology as scheduled in April, primary care physician in 2-3 days, can continue to use [id number] Benadryl, Tylenol, and Motrin as needed for headache pain. Has a new prescription for amitriptyline 5 mg daily. Suggest down titrating or coming off of Zoloft with use of this medication. Patient seen and examined at bedside. Initially headache had improved is on the left side. Daughter present at bedside. All questions answered. I encouraged him to continue outpatient follow-up with neurology for further recommendations for prophylactic and abortive active medications and have an established outpatient provider for possible steroids and treatments should her migraine nevus that again in the future. Vital signs reviewed and stable. General: non toxic, no distress, appears at stated age Derm: warm, dry Head: atraumatic, normocephalic, symmetric Eyes: EOMI, no lid lag, anicteric sclera Mouth: no lip lesion, mucus membranes moist Cardiovascular: S1S2 reg, no murmur, positive posterior tibial pulse bilateral, Lungs: CTA bilateral, no rhonchi, no rales , no accessory muscle use Abdominal: soft, nontender to palpation, no guarding, no appreciable organomegaly Ext: no gross muscle atrophy, no edema, no contractures Neuro: CN II-XI grossly intact, no focal neuro deficits Psych: Alert, oriented, appropriate affect A total of 25 minutes of time were spent preparing this complex discharge summary . Patient Condition at Discharge: Stable Plan - Discharge Summary Discharge Rx Participant: Yes New Discharge Prescriptions: New Amitriptyline HCl [Elavil] 5 mg PO HS #30 tab polyethylene glycoL 3350 [Miralax] 17 gm PO DAILY #1 packet Ibuprofen [Motrin] 400 mg PO Q6HR PRN tab PRN Reason: Pain Acetaminophen Tab [Tylenol] 650 mg PO Q6HR PRN tab PRN Reason: Fever And/ Or Pain Continue traZODone HCL [Desyrel] 50 mg PO HS Sertraline HCl [Zoloft] 200 mg PO HS Oxybutynin Chloride [Ditropan] 5 mg PO BID Apixaban [Eliquis] 5 mg PO BID Propranolol [Inderal] 40 mg PO BID SUMAtriptan succinate [Imitrex] 50 mg PO DAILY PRN PRN Reason: Migraine Headache Ondansetron [Zofran ODT] 4 mg PO Q8H PRN PRN Reason: Nausea Discharge Medication List Oxybutynin Chloride [Ditropan] 5 mg PO BID 01/12/19 [History] Sertraline HCl [Zoloft] 200 mg PO HS 01/12/19 [History] traZODone HCL [Desyrel] 50 mg PO HS 01/12/19 [History] Apixaban [Eliquis] 5 mg PO BID 04/27/21 [History] Propranolol [Inderal] 40 mg PO BID 04/27/21 [History] SUMAtriptan succinate [Imitrex] 50 mg PO DAILY PRN 04/27/21 [History] Acetaminophen Tab [Tylenol] 650 mg PO Q6HR PRN tab 04/28/21 [Rx] Amitriptyline HCl [Elavil] 5 mg PO HS #30 tab 04/28/21 [Rx] Ibuprofen [Motrin] 400 mg PO Q6HR PRN tab 04/28/21 [Rx] Ondansetron [Zofran ODT] 4 mg PO Q8H PRN 04/28/21 [History] polyethylene glycoL 3350 [Miralax] 17 gm PO DAILY #1 packet 04/28/21 [Rx] Follow up Appointment(s)/Referral(s): Caleb Rincon [Primary Care Provider] - 1-2 days Patient Instructions/Handouts: Migraine Headache (GEN) Activity/Diet/Wound Care/Special Instructions: Activity: as tolerated Diet: regular, increase calorie intake with goal of 1500 Increase fluid intake Special Instructions: Migraine RAMOS treatment: Tylenol 500-650 mg, Benadryl 12.5-25 mg, and Motrin 400 mg - can take up to 3 times daily for 3 days as needed. - motrin only for 2 or so days with eliquis. Please keep your scheduled follow-up with neurology. It has been a pleasure caring for you and meeting your daughter. Have a Blended Tony Tea for me tomorrow! Discharge Disposition: HOME SELF-CARE
[2021-04-28] MEDS ORDERED: AMITRIPTYLINE HCL 10 MG TAB PO SCH (21:00)
== END 2021-04-28 19:39 | disposition home or self-care (01) | DRG 103 ==
LOC: EC 16:17 → 5NMEDONC 21:15
PROVIDERS: ADMIT Internal Medicine; ATTEND Internal Medicine
DX: G43.911 Migraine, unspecified, intractable, with status migrainosus (principal); E87.1 Hypo-osmolality and hyponatremia; D72.819 Decreased white blood cell count, unspecified; I10 Essential (primary) hypertension; M19.90 Unspecified osteoarthritis, unspecified site; Z79.01 Long term (current) use of anticoagulants; Z79.899 Other long term (current) drug therapy; Z86.711 Personal history of pulmonary embolism; Z86.718 Personal history of other venous thrombosis and embolism; Z87.891 Personal history of nicotine dependence; Z90.710 Acquired absence of both cervix and uterus; Z96.611 Presence of right artificial shoulder joint; Z96.641 Presence of right artificial hip joint; Z96.652 Presence of left artificial knee joint; F32.9 Major depressive disorder, single episode, unspecified
CPT/HCPCS: 36415; 70450; 70544; 70553; 80048; 80053; 81003; 84484; 85025; 85610; 85730; 93005; 96374; 96375; 99285